=== PATIENT | female | born 1945 | race Caucasian/White ===

== ENCOUNTER 2016-07-26 14:39 | Emergency (ER) | payer BC, OTHER | END 2016-07-26 17:38 | disposition home or self-care (01) | LOC: ER 14:39 | DX: K52.9 Noninfective gastroenteritis and colitis, unspecified (principal); E86.0 Dehydration; N39.0 Urinary tract infection, site not specified; Z90.710 Acquired absence of both cervix and uterus; Z79.82 Long term (current) use of aspirin; Z88.0 Allergy status to penicillin | CPT/HCPCS: 36415; 96361; 96365; 96375; J0696; J1100; J2550; Q9967 ==